=== PATIENT | male | born 1980 | race Hispanic/Latino ===

== ENCOUNTER 2018-10-13 22:34 | Emergency (ER) | payer BC ==
--- OUTSIDE RECORDS SUMMARY | 2018-10-13 22:36 | XMS REPORT ---
:1980 [facility] Address [address] [place] [address] [address] Care Team Providers Name Role Phone DR BULL [place] Unavailable Unavailable Problems This patient has no known problems. Allergies, Adverse Reactions, Alerts This patient has no known allergies or adverse reactions. Medications This patient has no known medications. Encounters Start End Encounter Admission Attending Care Care Encounter Date/Time Date/Time Type Type Clinicians Facility Department ID 2018-08-28 2018-08-28 Outpatient [facility] [id number] 05:52:00 08:15:00 BULL
[2018-10-13] MEDS ORDERED: KETOROLAC 30 MG/ML INJ ONE (23:45)
--- NOTE | 2018-10-14 00:25 | ER ---
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 Transition of care: patient was not received from another setting of care. Onset of symptoms was October 13, 2018. Risk Assessment: Do you want to hurt yourself or someone else? Patient reports no desire to harm self or others. Initial Sepsis Screen: Does the patient meet any 2 criteria? No. Patient's initial sepsis screen is negative. Does the patient have a suspected source of infection? No. Patient's initial sepsis screen is negative. Care prior to arrival: None. 22:52 Method Of Arrival: Ambulatory lp1 22:52 Acuity: KATIANA 4 lp1 Historical: - Allergies: 22:55 No Known Allergies; lp1 - Home Meds: 22:55 Synthroid Oral [Active]; phentermine Oral [Active]; lp1 - PMHx: 22:55 Hypothyroidism; lp1 - PSHx: 22:55 None; lp1 - Immunization history:: Adult Immunizations up to date. - Social history:: Smoking status: Patient/guardian denies using tobacco. - Ebola Screening: : No symptoms or risks identified at this time. Screenin:56 Abuse screen: Denies threats or abuse. Denies injuries from another. Nutritional lp1 screening: No deficits noted. Tuberculosis screening: No symptoms or risk factors identified. Fall Risk None identified. Assessment: 23:00 General: Appears in no apparent distress. comfortable, Behavior is calm, cooperative, ca1 appropriate for age. Pain: Complains of pain in left trapezius, left scapular area, left subscapular area and left mid back Pain does not radiate. Pain currently is 6 out of 10 on a pain scale. Pain began 4 days ago. Neuro: Level of Consciousness is awake, alert, obeys commands, Oriented to person, place, time, situation. Cardiovascular: Heart tones S1 S2 present Capillary refill < 3 seconds Patient's skin is warm and dry. Respiratory: Airway is patent Respiratory effort is even, unlabored, Respiratory pattern is regular, symmetrical, Breath sounds are clear bilaterally. GI: Abdomen is flat, non-distended, Bowel sounds present X 4 quads. GI: Abd is soft and non tender X 4 quads. : No signs and/or symptoms were reported regarding the genitourinary system. EENT: No signs and/or symptoms were reported regarding the EENT system. Derm: Skin is intact, is healthy with good turgor, Skin is pink, warm \T\ dry. Musculoskeletal: Circulation, motion, and sensation intact. Capillary refill < 3 seconds. 10/14 00:04 Reassessment: Patient appears in no apparent distress at this time. Patient and/or ca1 family updated on plan of care and expected duration. Pain level reassessed. Patient is alert, oriented x 3, equal unlabored respirations, skin warm/dry/pink. Patient states feeling better. Vital Signs: 10/13 22:53 BP 116 / 67; Pulse 60; Resp 18; Temp 98.1; Pulse Ox 98% on R/A; Weight 85.28 kg; Height lp1 5 ft. 7 in. (170.18 cm); Pain 6/10; 10/14 00:04 BP 103 / 61; Pulse 61; Resp 19; Pulse Ox 99% on R/A; ca1 10/13 22:53 Body Mass Index 29.44 (85.28 kg, 170.18 cm) lp1 ED Course: 10/13 22:51 Patient arrived in ED. ag3 22:53 Triage completed. lp1 22:53 Arm band placed on right wrist. lp1 22:56 Fannie Priest, RN is Primary Nurse. ca1 23:00 Patient has correct armband on for positive identification. Bed in low position. Call ca1 light in reach. Side rails up X 1. Pulse ox on. NIBP on. Warm blanket given. 23:00 No provider procedures requiring assistance completed. ca1 23:14 Shashank Culp PA is PHCP. cp 23:14 Shashank Willett MD is Attending Physician. cp 10/14 00:32 Patient did not have IV access during this emergency room visit. ca1 Administered Medications: 10/13 23:38 Drug: TORadol 60 mg Route: IM; Site: left gluteus; ca1 10/14 00:19 Follow up: Response: No adverse reaction; Pain is decreased ca1 Outcome: 00:24 Discharge ordered by . [email or web address] 00:31 Discharged to home ambulatory. ca1 00:31 Condition: stable 00:31 Discharge instructions given to patient, Instructed on discharge instructions, follow up and referral plans. medication usage, Demonstrated understanding of instructions, follow-up care, medications, Prescriptions given X 2. 00:32 Patient left the ED. ca1 Signatures: Christina Gomez RN RN lp1 Shashank Culp PA PA cp Gomez, Alice ag3 Fannie Priest RN RN ca1
--- NOTE | 2018-10-14 00:25 | EDPHYS ---
Physician Documentation [facility] Name: Aguilar No Age: 38 yrs Sex: Male : 1980 Arrival Date: 10/13/2018 Time: 22:51 Bed 28 Private MD: ED Physician Shashank Willett HPI: 10/13 23:30 This 38 yrs old Male presents to ER via Ambulatory with complaints of Back cp Pain. 23:30 The patient presents with pain that is acute, with no known mechanism of injury. The cp symptoms are located in the left scapular area, left subscapular area and left mid back. Onset: The symptoms/episode began/occurred 4 day(s) ago. The pain does not radiate. 23:30 Associated signs and symptoms: Pertinent negatives: abdominal pain, chest pain, fever, cp headache, numbness, weakness. 23:30 Severity of symptoms: in the emergency department the symptoms are unchanged, despite cp home interventions. Historical: - Allergies: 22:55 No Known Allergies; lp1 - Home Meds: 22:55 Synthroid Oral [Active]; phentermine Oral [Active]; lp1 - PMHx: 22:55 Hypothyroidism; lp1 - PSHx: 22:55 None; lp1 - Immunization history:: Adult Immunizations up to date. - Social history:: Smoking status: Patient/guardian denies using tobacco. - Ebola Screening: : No symptoms or risks identified at this time. ROS: 23:38 Constitutional: Negative for body aches, chills, fever, poor PO intake. cp 23:38 Eyes: Negative for injury, pain, redness, and discharge. cp 23:38 ENT: Negative for drainage from ear(s), ear pain, sore throat, difficulty swallowing, difficulty handling secretions. 23:38 Neck: Negative for injury or acute deformity, pain with movement, pain at rest, stiffness, tenderness. 23:38 Cardiovascular: Negative for chest pain, edema, palpitations. 23:38 Respiratory: Negative for cough, shortness of breath, wheezing. 23:38 Abdomen/GI: Negative for abdominal pain, nausea, vomiting, and diarrhea, constipation. 23:38 Back: Positive for pain at rest, pain with movement, of the left scapular area, left subscapular area and left mid back. 23:38 Skin: Negative for cellulitis, rash. 23:38 Neuro: Negative for altered mental status, headache, numbness, weakness. 23:38 All other systems are negative. Exam: 23:45 Constitutional: The patient appears in no acute distress, alert, awake, cp non-diaphoretic, non-toxic, well developed, well nourished. 23:45 Head/Face: Normocephalic, atraumatic. cp 23:45 Eyes: Periorbital structures: appear normal, Conjunctiva: normal, no exudate, no injection, Sclera: no appreciated abnormality, Lids and lashes: appear normal, bilaterally. 23:45 ENT: External ear(s): are unremarkable, Nose: is normal, Mouth: Lips: moist, Oral mucosa: moist, Posterior pharynx: Airway: no evidence of obstruction, patent. 23:45 Neck: C-spine: vertebral tenderness, is not appreciated, crepitus, is not appreciated, ROM/movement: is normal, is supple, without pain, no range of motions limitations, no meningismus, no nuchal rigidity. 23:45 Chest/axilla: Inspection: normal, Palpation: is normal, no crepitus, no tenderness. 23:45 Cardiovascular: Rate: normal, Rhythm: regular. 23:45 Respiratory: the patient does not display signs of respiratory distress, Respirations: normal, no use of accessory muscles, no retractions, no splinting, no tachypnea, Breath sounds: are clear throughout, no decreased breath sounds, no stridor, no wheezing. 23:45 Abdomen/GI: Exam negative for discomfort, distension, guarding, Inspection: abdomen appears normal. 23:45 Back: pain, that is mild, of the left scapular area, left subscapular area and left mid back, muscle spasm, is appreciated in the left scapular area and left subscapular area. 23:45 Skin: cellulitis, is not appreciated, no rash present. 23:45 Neuro: Orientation: to person, place \T\ time. Mentation: is normal, Cerebellar function: is grossly normal, Motor: moves all fours, strength is normal, Sensation: is normal. Vital Signs: 22:53 BP 116 / 67; Pulse 60; Resp 18; Temp 98.1; Pulse Ox 98% on R/A; Weight 85.28 kg; Height lp1 5 ft. 7 in. (170.18 cm); Pain 6/10; 10/14 00:04 BP 103 / 61; Pulse 61; Resp 19; Pulse Ox 99% on R/A; ca1 10/13 22:53 Body Mass Index 29.44 (85.28 kg, 170.18 cm) lp1 MDM: 10/13 23:14 Patient medically screened. cp 23:40 Differential diagnosis: Cholelithiasis ruptured disc, spinal injury, sprain, vertebral cp fracture. 10/14 00:22 Data reviewed: vital signs, nurses notes, and as a result, I will discharge patient. cp 00:22 Counseling: I had a detailed discussion with the patient and/or guardian regarding: the cp historical points, exam findings, and any diagnostic results supporting the discharge/admit diagnosis, to return to the emergency department if symptoms worsen or persist or if there are any questions or concerns that arise at home. Administered Medications: 10/13 23:38 Drug: TORadol 60 mg Route: IM; Site: left gluteus; ca1 10/14 00:19 Follow up: Response: No adverse reaction; Pain is decreased ca1 Disposition: 10/14/18 00:24 Discharged to Home. Impression: Back Pain. - Condition is Stable. - Discharge Instructions: Thoracic Strain. - Prescriptions for Cyclobenzaprine 10 mg Oral Tablet - take 1 tablet by ORAL route every 8 hours As needed no driving while taking medication; 20 tablet. Diclofenac Sodium 75 mg Oral Tablet, Delayed Release (E.C.) - take 1 tablet by ORAL route 2 times per day; 20 tablet. - Medication Reconciliation Form, Thank You Letter, Antibiotic Education, Prescription Opioid Use form. - Follow up: Private Physician; When: 2 - 3 days; Reason: Recheck today's complaints. - Problem is new. - Symptoms have improved. Addendum: 10/16/2018 07:21 Co-signature as Attending Physician, Shashank Willett MD I agree with the assessment and c [facility] plan of care. Signatures: Shashank Willett MD MD cha Pena, Laura, RN RN lp1 Shashank Culp PA PA cp Acob, Cheryl, RN RN ca1 Corrections: (The following items were deleted from the chart) 10/14 00:32 00:24 10/14/2018 00:24 Discharged to Home. Impression: Back Pain. Condition is Stable. ca1 Forms are Medication Reconciliation Form, Thank You Letter, Antibiotic Education, Prescription Opioid Use. Follow up: Private Physician; When: 2 - 3 days; Reason: Recheck today's complaints. Problem is new. Symptoms have improved. cp
== END 2018-10-14 00:32 | disposition home or self-care (01) ==
LOC: ER 22:34
DX: M54.9 Dorsalgia, unspecified (principal); E03.9 Hypothyroidism, unspecified
CPT/HCPCS: 96372; 99283

== ENCOUNTER 2021-03-26 13:55 | Emergency (ER) | payer BC ==
--- OUTSIDE RECORDS SUMMARY | 2021-03-26 13:57 | XMS REPORT | Continuity of Care Document ---
:1980 Author Organization [facility] t Address [address] [place] [address] Dr. Carpenter. [address] [place] [address] Care Team Providers Name Role Phone Lab, [facility] Fam Pob I Attending Clinician Unavailable DR RICHELLE Attending Clinician Unavailable DR RICHELLE Admitting Clinician Unavailable Problems This patient has no known problems. Allergies, Adverse Reactions, Alerts This patient has no known allergies or adverse reactions. Medications This patient has no known medications. Procedures This patient has no known procedures. Encounters Start End Encounter Admission Attending Care Care Encounter Source Date/Time Date/Time Type Type Clinicians Facility Department ID 2021-03-20 2021-03-20 Laboratory Lab, [facility] [id number] 09:45:22 10:07:24 Only Fam Pob [facility] [id number] [place] [id number] [address] 2018-11-13 2018-11-13 Outpatient Matthias PEOPLES [facility] [id number] 04:12:00 06:20:00 [facility] 2018-08-28 2018-08-28 Outpatient Matthias PEOPLES [facility] [id number] 05:52:00 08:15:00 [facility] Results This patient has no known results.
--- NOTE | 2021-03-26 15:07 | ER ---
Nurse's Notes [facility] Name: Aguilar No Age: 40 yrs Sex: Male : 1980 Arrival Date: 03/26/2021 Time: 14:00 Bed Waiting Private MD: Diagnosis: Coronavirus infection, unspecified;Low back pain Presentation: 03/26 15:02 Chief complaint: Back pain x 7 days. COVID +. Coronavirus screen: At this time, the hb client does not indicate any symptoms associated with coronavirus-19. Ebola Screen: No symptoms or risks identified at this time. Risk Assessment: Do you want to hurt yourself or someone else? Patient reports no desire to harm self or others. Onset of symptoms was March 20, 2021. 15:02 Method Of Arrival: Ambulatory hb 15:02 Acuity: KATIANA 4 hb Historical: - Allergies: 15:03 No Known Allergies; hb - PMHx: 15:03 Hypothyroidism; hb Vital Signs: 15:03 BP 128 / 96; Pulse 90; Resp 20; Temp 99.3; Pulse Ox 95% ; Weight 86.18 kg; Height 5 ft. hb 7 in. (170.18 cm); Pain 6/10; 15:03 Body Mass Index 29.76 (86.18 kg, 170.18 cm) hb ED Course: 14:00 Patient arrived in ED. mr 15:03 Triage completed. hb 15:03 Arm band placed on. hb 15:06 Cady Francois FNP-C is [facility]. kb 15:06 Khadar Calderon is Attending Physician. kb Administered Medications: No medications were administered Outcome: 15:07 Discharge ordered by . soniya 15:14 Discharged to home hb 15:14 Condition: stable 15:14 Discharge instructions given to patient, Instructed on discharge instructions, follow up and referral plans. medication usage, Demonstrated understanding of instructions, follow-up care, medications, Prescriptions given X 2. 15:15 Patient left the ED. hb Signatures: Cady Francois FNP-C FNP-Ckb Rivera, Mary Vicki Grijalva, RN RN hb
--- NOTE | 2021-03-26 15:07 | EDPHYS ---
Physician Documentation [facility] Name: Aguilar No Age: 40 yrs Sex: Male : 1980 Arrival Date: 03/26/2021 Time: 14:00 Bed Waiting Private MD: ED Physician Khadar Calderon HPI: 03/26 15:10 This 40 yrs old Male presents to ER via Ambulatory with complaints of kb COVID+,chills, Back Pain. 15:10 The patient presents with pain that is acute. The symptoms are located in the low back. kb Onset: The symptoms/episode began/occurred 7 day(s) ago. The pain does not radiate. Associated signs and symptoms: Pertinent positives: fever, chills, cough, covid+. The problem was sustained without known cause. Modifying factors: The patient symptoms are alleviated by nothing, the patient symptoms are aggravated by nothing. Severity of symptoms: At their worst the symptoms were moderate, in the emergency department the symptoms are unchanged. The patient has not experienced similar symptoms in the past. The patient has been recently seen by a physician:. Pt reports lower back pain that started when his covid symptoms started. States he has had it for 7 days. Taking tylenol with no relief. States he still has fever, chills and cough as well . Historical: - Allergies: 15:03 No Known Allergies; hb - PMHx: 15:03 Hypothyroidism; hb ROS: 15:10 Respiratory: Negative for shortness of breath, cough, wheezing, and pleuritic chest kb pain. 15:10 Constitutional: Positive for chills, fever, Negative for body aches, fatigue, malaise, poor PO intake, weight loss. 15:15 Respiratory: Positive for cough, Negative for dyspnea on exertion, hemoptysis, kb orthopnea, pleurisy, shortness of breath, sputum production, wheezing. 15:15 Back: Positive for pain at rest, of the low back area and mid back area. 15:15 All other systems are negative. Exam: 15:15 Constitutional: This is a well developed, well nourished patient who is awake, alert, kb and in no acute distress. Head/Face: Normocephalic, atraumatic. ENT: Moist Mucous membranes Cardiovascular: Regular rate and rhythm with a normal S1 and S2. No gallops, murmurs, or rubs. No pulse deficits. Respiratory: Respirations even and unlabored. No increased work of breathing, no retractions or nasal flaring. Skin: Warm, dry with normal turgor. Normal color. MS/ Extremity: Pulses equal, no cyanosis. Neurovascular intact. Full, normal range of motion. Neuro: Awake and alert, GCS 15, oriented to person, place, time, and situation. Moves all extremities. Normal gait. Psych: Awake, alert, with orientation to person, place and time. Behavior, mood, and affect are within normal limits. 15:15 Back: pain, that is mild, of the low back area and mid back area, ROM is normal, normal spinal alignment noted, CVA tenderness, is absent. 15:16 Neuro: Exam negative for acute changes. kb Vital Signs: 15:03 BP 128 / 96; Pulse 90; Resp 20; Temp 99.3; Pulse Ox 95% ; Weight 86.18 kg; Height 5 ft. hb 7 in. (170.18 cm); Pain 6/10; 15:03 Body Mass Index 29.76 (86.18 kg, 170.18 cm) hb MDM: 15:06 Patient medically screened. kb 15:09 Data reviewed: vital signs, nurses notes. Data interpreted: Pulse oximetry: on room air kb is 95 %. Interpretation: normal. Counseling: I had a detailed discussion with the patient and/or guardian regarding: the historical points, exam findings, and any diagnostic results supporting the discharge/admit diagnosis, the need for outpatient follow up, a family practitioner, to return to the emergency department if symptoms worsen or persist or if there are any questions or concerns that arise at home. Administered Medications: No medications were administered Disposition: 16:48 Co-signature as Attending Physician, Khadar Calderon I agree with the assessment and plan sp3 of care. Disposition Summary: 03/26/21 15:07 Discharge Ordered Location: Home kb Condition: Stable kb Diagnosis - Coronavirus infection, unspecified kb - Low back pain kb Followup: kb - With: Emergency Department - When: As needed - Reason: Worsening of condition Followup: kb - With: Private Physician - When: 2 - 3 days - Reason: Recheck today's complaints, Continuance of care, Re-evaluation by your physician Discharge Instructions: - Discharge Summary Sheet kb - Musculoskeletal Pain kb - Viral Respiratory Infection, [id number] kb - COVID-19 kb Forms: - Medication Reconciliation Form kb - Thank You Letter kb - Antibiotic Education kb - Prescription Opioid Use kb Prescriptions: - Cyclobenzaprine 10 mg Oral Tablet - take 1 tablet by ORAL route every 8 hours As needed; 21 tablet; Refills: 0, kb Product Selection Permitted - Diclofenac Sodium 75 mg Oral tablet,delayed release (DR/EC) - take 1 tablet by ORAL route 2 times per day As needed; 30 tablet; Refills: 0, kb Product Selection Permitted Signatures: Cady Francois, TILE SORTER-C TILE SORTER-Isaakb Vicki Grijalva, RN RN Khadar Calderon sp3
[2021-03-26 15:37] VITALS: BP 128/96; TEMP 99.3; O2SAT 95
== END 2021-03-26 15:15 | disposition home or self-care (01) ==
LOC: ER 13:55
DX: U07.1 COVID-19 (principal)
CPT/HCPCS: 99282